=== PATIENT | female | born 1965 | race Caucasian/White ===

== ENCOUNTER → 2017-07-29 | Outpatient (CLI) | payer BC ==
--- NOTE | 2017-07-30 07:58 | MM ---
Reason for exam: screening (asymptomatic). Last mammogram was performed 1 year and 2 months ago. History: Family history of breast cancer in grandmother and breast cancer in 2 maternal aunts. Physical Findings: A clinical breast exam by your physician is recommended on an annual basis and results should be correlated with mammographic findings. MG 3D Screening Mammo W/Cad Bilateral CC and MLO view(s) were taken. Prior study comparison: June 12, 2016, bilateral MG screening mammo w CAD. July 16, 2015, bilateral MG 3d screening mammo w/cad. The breast tissue is heterogeneously dense. This may lower the sensitivity of mammography. No significant changes when compared with prior studies. ASSESSMENT: Benign, BI-RAD 2 RECOMMENDATION: Routine screening mammogram of both breasts in 1 year.
== END | disposition home or self-care (01) ==
LOC: RADMAMWWP 07:36
PROVIDERS: ATTEND Family Medicine
DX: Z12.31 Encounter for screening mammogram for malignant neoplasm of breast (principal)
CPT/HCPCS: 77063; 77067

== ENCOUNTER → 2018-08-30 | Outpatient (CLI) | payer BC ==
--- NOTE | 2018-08-31 09:50 | MM ---
Reason for exam: screening (asymptomatic). Last mammogram was performed 1 year and 1 month ago. History: Family history of breast cancer in grandmother and breast cancer in 2 maternal aunts. Physical Findings: A clinical breast exam by your physician is recommended on an annual basis and results should be correlated with mammographic findings. MG 3D Screening Mammo W/Cad Bilateral CC and MLO view(s) were taken. Prior study comparison: July 29, 2017, bilateral MG 3d screening mammo w/cad. June 12, 2016, bilateral MG screening mammo w CAD. The breast tissue is heterogeneously dense. This may lower the sensitivity of mammography. There is no discrete abnormality. No significant changes when compared with prior studies. ASSESSMENT: Negative, BI-RAD 1 RECOMMENDATION: Routine screening mammogram of both breasts in 1 year.
== END | disposition home or self-care (01) ==
LOC: RADMAMWWP 07:24
PROVIDERS: ATTEND Family Medicine
DX: Z12.31 Encounter for screening mammogram for malignant neoplasm of breast (principal)
CPT/HCPCS: 77063; 77067

== ENCOUNTER → 2018-09-23 | Outpatient (CLI) | payer BC ==
--- NOTE | 2018-09-23 22:07 | CONS ---
CONSULTATION DATE OF SERVICE: 09/23/2018 53-year-old lady who has been [facility] for possible obstructive sleep apnea/hypopnea syndrome. HISTORY OF PRESENT ILLNESS SLEEP WAKE EVALUATION: SLEEP SCHEDULE: Patient usual sleep schedule from 10 p.m. to 6:50 am on working days and from 10:30 p.m. to 7:30 or 8 am on weekends. FALLING ASLEEP: Usually no problems with falling asleep, although she has TV in bedroom. DURING SLEEP: She sleeps on the side position with loud snoring and witnessed episodes of stopped breathing during the sleep by her . She wakes up from sleep about 4 times with up to 3 episodes of nocturia. DURING THE DAY/SLEEP WAKE EVALUATION: Usually she does not take any naps during the day. [place] Sleepiness Scale is 6. No history of hypnagogic hallucinations, sleep paralysis or cataplexy. PAST MEDICAL HISTORY: 1. Positive for vitamin D deficiency. 2. History of strep throat and increased size of the tonsils. MEDICATIONS: 1. Vitamin D. 2. Baby aspirin. 3. Atorvastatin. 4. Presently . SOCIAL HISTORY: Negative for smoking. Alcohol consumption occasional. FAMILY HISTORY: Heart problems, snoring, diabetes, cancer, insomnia. REVIEW OF SYSTEMS: Multiple awakenings from sleep. PHYSICAL EXAM: lady without distress BP 122/88, HR 88, RR 16, height 5 feet 11 inches, weight 202 pounds, body mass index 28.1, temperature 98.3, oxygen saturation at room air 98%. Oropharynx: Hypertrophy of tonsils, small oropharyngeal air space, neck 14- 1/2 inches in circumference. Neck Supple, no JVD. Thyroid is not palpable. LUNGS Clear to percussion and to auscultation. Good air exchange. No wheezing or rhonchi. HEART S1, S2 regular. No murmurs, gallops, or rubs. ABDOMEN Soft and nontender. Bowel sounds are present. No organomegaly appreciated. EXTREMITIES No clubbing or cyanosis. 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 Cranial nerves 2 to 7 intact. There is no fasciculation or atrophy. noted. No focal deficits observed. IMPRESSION: 1. Snoring, witnessed episodes of stopped breathing during the sleep, multiple awakenings from sleep, hypertrophy of tonsils, small oropharyngeal air space, obstructive sleep apnea-hypopnea syndrome. 2. Hypertrophy of tonsils. Recent sore throat infection. 3. History of low vitamin D. 4. Perimenopausal since November of 2017. No menstrual periods since November of 2017. PLAN: 1. Sleep study for evaluation of patient breathing during the sleep. We will start with home sleep apnea test. 2. CPAP/BiPAP titration if sleep study confirms obstructive sleep apnea-hypopnea syndrome. 3. Preferable position during sleep on the side. 4. No driving if patient feels any sleepiness. 5. I will see patient for follow up visit to explain results of testing and following plan. Thank you very much for referring this patient for consultation. Sincerely, Carlyle Ortiz MD, PhD, FAASM Diplomat of [place] [employer] [place] [employer] Band Sawing Machine Operator of [facility] [place] MMRICHARDSON / NIYAN: [id number] /
== END ==
LOC: SLEEP 16:10
PROVIDERS: ATTEND Internal Medicine
DX: G47.33 Obstructive sleep apnea (adult) (pediatric) (principal); J35.1 Hypertrophy of tonsils; J02.9 Acute pharyngitis, unspecified; E55.9 Vitamin D deficiency, unspecified; Z78.0 Asymptomatic menopausal state; Z99.89 Dependence on other enabling machines and devices; Z79.899 Other long term (current) drug therapy; Z79.82 Long term (current) use of aspirin
CPT/HCPCS: 99211

== ENCOUNTER → 2019-09-20 | Outpatient (CLI) | payer BC ==
--- NOTE | 2019-09-20 11:27 | MM ---
Reason for exam: screening (asymptomatic). Last mammogram was performed 1 year and 1 month ago. History: Patient is postmenopausal. Family history of breast cancer in grandmother and breast cancer in 2 maternal aunts. Physical Findings: A clinical breast exam by your physician is recommended on an annual basis and results should be correlated with mammographic findings. MG 3D Screening Mammo W/Cad Bilateral CC and MLO view(s) were taken. Prior study comparison: August 30, 2018, bilateral MG 3d screening mammo w/cad. July 29, 2017, bilateral MG 3d screening mammo w/cad. The breast tissue is heterogeneously dense. This may lower the sensitivity of mammography. Scattered area of asymmetric densities are unchanged. No significant changes when compared with prior studies. ASSESSMENT: Benign, BI-RAD 2 RECOMMENDATION: Routine screening mammogram of both breasts in 1 year.
== END | disposition home or self-care (01) ==
LOC: RADMAMWWP 07:32
PROVIDERS: ATTEND Family Medicine
DX: Z12.31 Encounter for screening mammogram for malignant neoplasm of breast (principal)
CPT/HCPCS: 77063; 77067

== ENCOUNTER 2020-02-29 10:01 | Day surgery (SDC) | payer BC ==
[2020-02-27 16:08] VITALS: BMI 29.2
[~2020-02-29 10:01] MED LIST: DEXAMETHASONE SOD PHOSPHATE 10 MG/ML 1 ML VIAL IV ONE; HYDROmorphone 0.5 MG/0.5 ML SYRINGE IVP PRN; LACTATED RINGERS 1,000 ML IV SCH; ONDANSETRON 4 MG/2 ML VIAL IVP ONE; PROPOFOL 10 MG/ML 20 ML VIAL IV ONE
[2020-02-29 10:25] VITALS: RESP 16; TEMP 97.8
--- NOTE | 2020-02-29 11:47 | P.PCN ---
Date of Procedure: 02/29/20 Procedure(s) Performed: BRIEF HISTORY: Patient is a 54-year-old pleasant female scheduled for an elective colonoscopy as a part of screening for colorectal neoplasia. PROCEDURE PERFORMED: Colonoscopy. PREOPERATIVE DIAGNOSIS: Screening for colon cancer. IV sedation per Anesthesia. PROCEDURE: After informed consent was obtained, the patient, was brought into the endoscopy unit. IV sedation was administered by Anesthesia under continuous monitoring. Digital rectal examination was normal. Initially the Olympus CF-160 flexible video colonoscope was then inserted in the rectum, gradually advanced into the cecum without any difficulty. Careful examination was performed as the scope was gradually being withdrawn. Ileocecal valve and the appendiceal orifice were visualized and appeared normal. Prep was excellent. Mucosa of the cecum, ascending colon, transverse colon, descending colon, sigmoid colon, and rectum appeared normal. Retroflexion was performed in the rectum and no lesions were seen. The patient tolerated the procedure well. IMPRESSION: Normal-appearing colon from rectum to cecum with no evidence of colorectal neoplasia. RECOMMENDATIONS: Findings of this examination were discussed with the patient as well as her family. She was advised to have a repeat screening colonoscopy in 10 years..
[2020-02-29 12:32] VITALS: BP 121/81; PULSE 62
== END 2020-02-29 12:28 | disposition home or self-care (01) ==
LOC: ORWHC2ENDO 10:01
PROVIDERS: ATTEND Internal Medicine Gastroenterology
DX: Z12.11 Encounter for screening for malignant neoplasm of colon (principal); G47.33 Obstructive sleep apnea (adult) (pediatric); Z88.2 Allergy status to sulfonamides; Z79.82 Long term (current) use of aspirin; Z79.899 Other long term (current) drug therapy; Z99.89 Dependence on other enabling machines and devices
CPT/HCPCS: J2704; G0121

== ENCOUNTER → 2020-10-16 | Outpatient (CLI) | payer BC ==
--- NOTE | 2020-10-16 19:10 | XR ---
EXAMINATION TYPE: XR chest 2V DATE OF EXAM: 10/16/2020 COMPARISON: NONE HISTORY: Exposure to asbestos and left clavicle lump TECHNIQUE: Frontal and lateral views of the chest are obtained. FINDINGS: There is no focal air space opacity, pleural effusion, or pneumothorax seen. The cardiac silhouette size is within normal limits. The osseous structures are intact. IMPRESSION: No acute cardiopulmonary process. No evidence of significant pleural plaque.
== END | disposition home or self-care (01) ==
LOC: RADXRMAIN 17:06
PROVIDERS: ATTEND Family Medicine
DX: Z77.090 Contact with and (suspected) exposure to asbestos (principal)
CPT/HCPCS: 71046

== ENCOUNTER → 2020-10-16 | Outpatient (CLI) | payer BC ==
--- NOTE | 2020-10-17 11:57 | US ---
EXAMINATION TYPE: US mass soft tissue chest/back DATE OF EXAM: 10/16/2020 COMPARISON: NONE CLINICAL HISTORY: R22.1 Localized swelling, mass and lump, neck. Pt states palpable lump left supracl avicular area x 1 day Hypoechoic area/lesion in area of pt's palpable left supraclavicular= 0.9 x 0.8 x 0.8 cm ?etiology Attempted to call Dr's phone number provided on order, no answer IMPRESSION: 1. There may be an enlarged lymph node at the palpable abnormality. This is nonspecific and the heter ogenous hypoechoic area is not diagnostic for a lymph node. Recommend contrast CT soft tissue neck fo r additional evaluation
== END | disposition home or self-care (01) ==
LOC: RADUSWWP 16:36
PROVIDERS: ATTEND Family Medicine
DX: R22.1 Localized swelling, mass and lump, neck (principal)
CPT/HCPCS: 76536

== ENCOUNTER → 2020-10-19 | Outpatient (CLI) | payer BC ==
--- NOTE | 2020-10-19 12:10 | MM ---
Reason for exam: additional evaluation requested from prior study. Last mammogram was performed 1 year and 1 month ago. History: Patient is postmenopausal. Family history of breast cancer in grandmother and breast cancer in 2 maternal aunts. Physical Findings: Nurse did not find any significant physical abnormalities on exam. MG 3D Diag Mammo W/Cad JAZZMINE Bilateral CC and MLO view(s) were taken. Prior study comparison: September 20, 2019, bilateral MG 3d screening mammo w/cad. August 30, 2018, bilateral MG 3d screening mammo w/cad. The breast tissue is heterogeneously dense. This may lower the sensitivity of mammography. Benign calcifications. No significant new findings when compared with previous films. These results were verbally communicated with the patient and result sheet given to the patient on 10/19/20. ASSESSMENT: Probably benign, BI-RAD 3 RECOMMENDATION: Follow-up diagnostic mammogram of the left breast in 6 months.
== END | disposition home or self-care (01) ==
LOC: RADMAMWWP 09:38
PROVIDERS: ATTEND Family Medicine
DX: N63.10 Unspecified lump in the right breast, unspecified quadrant (principal); N63.20 Unspecified lump in the left breast, unspecified quadrant
CPT/HCPCS: 77062; 77066

== ENCOUNTER → 2020-10-29 | Outpatient (CLI) | payer BC ==
--- NOTE | 2020-10-29 15:56 | NM ---
EXAMINATION TYPE: NM parathyroid w/spect DATE OF EXAM: 10/29/2020 COMPARISON: NONE HISTORY: Elevated calcium levels TECHNIQUE: Following administration of 26.2 mCi Tc99m Sestamibi. Anterior projection images of the neck and ches t were obtained 10 minutes and 3 hours post injection. SPECT images of the neck and chest were obtai nayeli and reconstructed in three axes. FINDINGS: Thyroid tracer washout: Delayed images demonstrate near-complete tracer washout from the thyroid. Parathyroid uptake: None. The two-hour delayed images do not demonstrate any focal abnormal persisten t uptake in the region of the parathyroid glands to suggest parathyroid adenoma. Normal uptake: There is physiological tracer uptake in the myocardium, liver, salivary glands, and th yroid gland. IMPRESSION: Normal parathyroid imaging study. No evidence for mediastinal uptake to suggest mediastinal parathyro id adenoma
== END | disposition home or self-care (01) ==
LOC: RADNMMAIN 11:20
PROVIDERS: ATTEND Family Medicine
DX: E83.50 Unspecified disorder of calcium metabolism (principal)
CPT/HCPCS: 78071; A9500

== ENCOUNTER → 2021-04-23 | Outpatient (CLI) | payer BC ==
--- NOTE | 2021-04-23 10:47 | MM ---
Reason for exam: follow-up at short interval from prior study. Last mammogram was performed 6 months ago. History: Patient is postmenopausal. Family history of breast cancer in maternal grandmother and breast cancer in 2 maternal aunts. Physical Findings: Nurse did not find any significant physical abnormalities on exam. MG 3D Diag Mammo W/Cad LT CC and MLO view(s) were taken of the left breast. Prior study comparison: October 19, 2020, bilateral MG 3d diag mammo w/cad JAZZMINE. September 20, 2019, bilateral MG 3d screening mammo w/cad. August 30, 2018, bilateral MG 3d screening mammo w/cad. The breast tissue is heterogeneously dense. This may lower the sensitivity of mammography. Questionable central CC architectural distortion shows no MLO correlate. Previous axillary node no longer seen. These results were verbally communicated with the patient and result sheet given to the patient on 04/23/21. ASSESSMENT: Incomplete: need additional imaging evaluation, BI-RAD 0 RECOMMENDATION: Ultrasound of the left breast.
--- NOTE | 2021-04-23 10:50 | USB ---
Reason for exam: additional evaluation requested from abnormal screening. History: Patient is postmenopausal. Family history of breast cancer in maternal grandmother and breast cancer in 2 maternal aunts. US Breast Limited LT Technologist: Joanie Loyn Left limited breast ultrasound including focal area of concern, retroareolar and axilla demonstrates no cystic or solid lesion seen. Some patches of dense tissue noted. Scanned 11-1 o'clock and a 5-7 o'clock. These results were verbally communicated with the patient and result sheet given to the patient on 04/23/21. ASSESSMENT: Probably benign, BI-RAD 3 RECOMMENDATION: Follow-up diagnostic mammogram of both breasts in 6 months.
== END | disposition home or self-care (01) ==
LOC: RADMAMWWP 08:57
PROVIDERS: ATTEND Family Medicine
DX: R92.8 Other abnormal and inconclusive findings on diagnostic imaging of breast (principal); Z80.3 Family history of malignant neoplasm of breast
CPT/HCPCS: 77061; 77065

== ENCOUNTER → 2021-10-22 | Outpatient (CLI) | payer BC ==
--- NOTE | 2021-10-22 13:35 | MM ---
Reason for exam: additional evaluation requested from prior study. Last mammogram was performed 6 months ago. History: Patient is postmenopausal. Family history of breast cancer in maternal grandmother and breast cancer in 2 maternal aunts. Physical Findings: A clinical breast exam by your physician is recommended on an annual basis and results should be correlated with mammographic findings. MG 3D Diag Mammo W/Cad JAZZMINE Bilateral CC and MLO view(s) were taken. Prior study comparison: April 23, 2021, left breast MG 3d diag mammo w/cad LT. October 19, 2020, bilateral MG 3d diag mammo w/cad JAZZMINE. The breast tissue is heterogeneously dense. This may lower the sensitivity of mammography. Finding: There is suspicious, equal, spiculated architectural distortion located 4 cm from the nipple in the 6 o'clock anterior position of the left breast. New finding since April 23, 2021 and October 19, 2020. ASSESSMENT: Incomplete: need additional imaging evaluation, BI-RAD 0 RECOMMENDATION: Ultrasound of the left breast.
--- NOTE | 2021-10-22 13:39 | USB ---
Reason for exam: additional evaluation requested from abnormal screening. History: Patient is postmenopausal. Family history of breast cancer in maternal grandmother and breast cancer in 2 maternal aunts. Physical Findings: A clinical breast exam by your physician is recommended on an annual basis and results should be correlated with mammographic findings. US Breast Limited LT Left limited breast ultrasound including focal area of concern, retroareolar and axilla demonstrates no cystic or solid lesion seen. Scanned 5-7 o'clock. ASSESSMENT: Negative, BI-RAD 1 RECOMMENDATION: Surgical consultation and stereotactic core biopsy of the left breast. (3D stereotactic core biospy) Called Dr. Pennington's office with mammographic findings. Office will follow up with patient to schedule biopsy at appropriate facility for 3D biopsy. PRELIMINARY REPORT CALLED AND FAXED TO DR. PENNINGTON ON 10/22/21.
== END | disposition home or self-care (01) ==
LOC: RADMAMWWP 08:15
PROVIDERS: ATTEND Family Medicine
DX: R92.8 Other abnormal and inconclusive findings on diagnostic imaging of breast (principal); Z78.0 Asymptomatic menopausal state; Z80.3 Family history of malignant neoplasm of breast
CPT/HCPCS: 77062; 77066

== ENCOUNTER 2021-12-26 08:52 | Day surgery (SDC) | payer BC ==
[2021-12-24 14:48] VITALS: BMI 28.5
[~2021-12-26 08:52] MED LIST changes: -DEXAMETHASONE SOD PHOSPHATE 10 MG/ML 1 ML VIAL IV ONE; +DEXAMETHASONE SOD PHOSPHATE 4 MG/ML 1 ML VIAL IV ONE; -PROPOFOL 10 MG/ML 20 ML VIAL IV ONE; +Pre Op ABX Message 1 EACH MISC MISCELLANE ONE
[2021-12-26] MEDS ORDERED: ALPRAZolam 0.5 MG TAB ONE (09:30)
[2021-12-26] MEDS ORDERED: LIDOCAINE 1% INJ 10MG/ML (20 ML MDV) SQ ONE (10:58)
[2021-12-26] MEDS ORDERED: fentaNYL (PF) 50 MCG/ML 2 ML AMP ONE (12:50)
[2021-12-26] MEDS ORDERED: LIDOCAINE 2% INJ 20 MG/ML (2 ML VIAL) ONE (12:50)
[2021-12-26] MEDS ORDERED: MIDAZOLAM 2 MG/2 ML VIAL ONE (12:50)
[2021-12-26] MEDS ORDERED: PROPOFOL 10 MG/ML 20 ML VIAL IV ONE (12:50)
[2021-12-26] MEDS ORDERED: LIDOCAINE 1%-EPI 1:100,000 20 ML VIAL SQ ONE (13:14)
--- NOTE | 2021-12-26 14:28 | P.OP ---
Date of Procedure: 12/26/21 Preoperative Diagnosis: Radial scar, left breast Postoperative Diagnosis: Radial scar, left breast Procedure(s) Performed: Left breast lumpectomy with needle localization Anesthesia: JAYE Surgeon: Dewayne Cordoba Pathology: other (Radial scar of left breast, additional superior margin and additional lateral margin) Condition: stable Disposition: same day Indications for Procedure: 56-year-old female has recently been found to have abnormal finding of mammogram. Recommendation was for biopsy of the left breast. This was done under radiology and the biopsy was positive for radial scar. Secondary to this, recommendation was made for lumpectomy. Risks, benefits and alternatives were provided to the patient. She did provide consent prior to attending the operating suite. Operative Findings: Left breast lumpectomy, clipped not found and specimen, additional margins were taken Description of Procedure: The patient were was brought to the operating suite and placed on the operating table in supine position. Sedation was provided by anesthesia and the patient underwent LMA placement. She was then prepped and draped in regular sterile fashion. Prior to the procedure, patient did have needle localization of the biopsy site by radiology. Incision was made just superior to the needle insertion site. Dissection was carried to the needle and the needle was followed towards the tip using cautery as dissection. The entire specimen was encircled using cautery and then excised. This was sent for x-ray and clip was not found within the specimen. At this point, additional superior and lateral margin were taken and also sent for evaluation under x-ray with no clip noted in the specimen. On evaluation of the breast tissue, it did appear that a significant amount of tissue was removed with lumpectomy and decision was made for intraoperative imaging to evaluate for any clip that may still be in place. Fluoroscopy was used on the left breast with no obvious clip visible under x- ray. At this point, it is most likely that the clip was washed away with irrigation or on suction. Specimen that was removed surrounded the needle appropriately with significant margins taken. At this point hemostasis was noted to be maintained. The wound was closed with 4-0 Monocryl suture in subcuticular format. Sterile dressing was applied. The patient was awakened and taken to postoperative care unit in stable condition.
[2021-12-26 14:34] VITALS: TEMP 97
[2021-12-26 15:13] VITALS: RESP 18
[2021-12-26 15:36] VITALS: BP 138/91; PULSE 62
--- NOTE | 2021-12-27 08:24 | FL ---
Fluoroscopy HISTORY: Foreign body 1 seconds fluoroscopy time supplied to the referring clinician. 1 intraoperative C-arm images docume nt the procedure. See dictated report from general surgery.
--- NOTE | 2022-01-01 11:24 | MM ---
Risk Values: [place] 5 year model risk: 1.5%. NCI Lifetime model risk: 9.3%. Prior Study Comparison: 10/19/2020 Bilateral Diagnostic Mammogram, [facility]. 04/23/2021 Left Diagnostic Mammogram, [facility]. 10/22/2021 Bilateral Diagnostic Mammogram, [facility]. Pathology Description: Location: lower inner quadrant. Approach: CC FB Needle Type: 5 cm Kopan FROM BELOW CC FOR SPIRAL CLIP FROM [facility] The procedure of needle localization with wire placement and than surgical excision was explained to the patient. Benefits, alternatives, and risks were discussed. An informed consent was then obtained. The shortest pathway for procedure was chosen. Shortest pathway was caudal to cranial approach. The overlying skin was prepped and draped in usual sterile fashion. Lidocaine is used as anesthetic into the skin and subcutaneous tissue up to the level of area of concern. A 5 cm needle was used. It was placed via a inferior approach under mammographic guidance. Subsequent 90 degrees mammogram show the needle to be in satisfactory position relative to the targeted area. At this point, wire was placed and the needle was withdrawn. The wire was fixed to patient's skin. Images were marked for surgeon. The patient tolerated the procedure well without any immediate complication. The patient was kept in the radiology department for short stay after the procedure and then taken to surgery for surgical excision. Targeted biopsy clip number identified on 4 specimens obtained. Placed intact wire are identified in specimen mammogram. The patient was kept in hospital for short stay after the procedure and then discharged home in stable condition. Impression: Needle localization with wire placement and attempted surgical excision of targeted biopsy clip in the right breast, full pathology results to follow. Unsuccessful retrieval of biopsy clip on the 4 specimens obtained. The procedure of needle localization with wire placement and than surgical excision was explained to the patient. Benefits, alternatives, and risks were discussed. An informed consent was then obtained. The shortest pathway for procedure was chosen. Shortest pathway was caudal to cranial approach. The overlying skin was prepped and draped in usual sterile fashion. Lidocaine is used as anesthetic into the skin and subcutaneous tissue up to the level of area of concern. A 5 cm needle was used. It was placed via a inferior approach under mammographic guidance. Subsequent 90 degrees mammogram show the needle to be in satisfactory position relative to the targeted area. At this point, wire was placed and the needle was withdrawn. The wire was fixed to patient's skin. Images were marked for surgeon. The patient tolerated the procedure well without any immediate complication. The patient was kept in the radiology department for short stay after the procedure and then taken to surgery for surgical excision. Targeted biopsy clip number identified on 4 specimens obtained. Placed intact wire are identified in specimen mammogram. The patient was kept in hospital for short stay after the procedure and then discharged home in stable condition. Unsuccessful retrieval of biopsy clip on the 4 specimens obtained. Impression: Needle localization with wire placement and attempted surgical excision of targeted biopsy clip in the right breast, full pathology results to follow. Pathology Results: Result: Benign, Fat necrosis. A. LEFT BREAST, LUMPECTOMY: Biopsy site change with fat necrosis, fibrous scar and fibrocystic change with columnar cell change, focal microcalcification and sclerosing adenosis. Margins benign and examination negative for in situ or invasive carcinoma. Usual ductal hyperplasia present. B. LEFT BREAST, LUMPECTOMY: Biopsy site change with fat necrosis, fibrous scar and focal hemorrhage. Focal usual ductal hyperplasia present. Margins benign and examination negative for in situ or invasive carcinoma. C. LEFT BREAST, SUPERIOR MARGIN, EXCISION: Biopsy site change with fat necrosis, fibrosis and focal microcalcification. All margins benign and examination negative for in situ or invasive carcinoma. Focal usual ductal hyperplasia present. Focal sclerosing adenosis. D. LEFT BREAST, ADDITIONAL LATERAL MARGIN, EXCISION: Benign breast tissue. All margins benign and examination negative for in situ or invasive carcinoma. Overall Assessment: Benign Management: Diagnostic Mammogram of the left breast in 6 months. Electronically signed and approved by: Eugene Hawk M.D.
== END 2021-12-26 15:56 | disposition home or self-care (01) ==
LOC: OR 08:52
PROVIDERS: ATTEND Surgery
DX: L90.5 Scar conditions and fibrosis of skin (principal); N64.89 Other specified disorders of breast
CPT/HCPCS: 19301; 76098; 19281; C1819; J2250; J2001 ×2; J3010; J2704; 88307

== ENCOUNTER → 2022-07-10 | Outpatient (CLI) | payer BC ==
--- NOTE | 2022-07-10 10:17 | MM ---
Reason for Exam: Additional evaluation requested from prior study. Last screening mammogram was performed 9 month(s) ago. Patient History: Menarche at age 14. First Full-Term at age 25. Postmenopausal. Patient has history of breast feeding. Breast cancer, left, age 56. 10/24/2021, MG stereo VAD BX LT - 2 on the Left side. 12/26/2021, Benign MG pre op needle loc LT on the left side. Maternal grandmother had breast cancer. Maternal aunt had breast cancer. Maternal aunt had breast cancer. Prior Study Comparison: 08/30/2018 Bilateral Screening Mammogram, [facility]. 09/20/2019 Bilateral Screening Mammogram, [facility]. 10/19/2020 Bilateral Diagnostic Mammogram, [facility]. 04/23/2021 Left Diagnostic Mammogram, [facility]. 10/22/2021 Bilateral Diagnostic Mammogram, [facility]. Tissue Density: The breast tissue is heterogeneously dense. This may lower the sensitivity of mammography. Findings: Analyzed By CAD. Pattern appears stable. There is a stable distortion within the left breast which has been biopsied. The surgical markers been resected over the interval. Right breast appears stable. No suspicious spiculated or lobular masses are evident. No suspicious cluster microcalcifications. Overall Assessment: Benign, BI-RAD 2 Management: Screening Mammogram of both breasts in 1 year. A clinical breast exam by your physician is recommended on an annual basis and results should be correlated with mammographic findings. This exam should not preclude additional follow-up of suspicious palpable abnormalities. Results were given to the patient verbally at the time of exam. Electronically signed and approved by: Heron Blanc D.O. Radiologis
== END | disposition home or self-care (01) ==
LOC: RADMAMWWP 07:31
PROVIDERS: ATTEND Internal Medicine
DX: R92.8 Other abnormal and inconclusive findings on diagnostic imaging of breast (principal); Z78.0 Asymptomatic menopausal state; Z80.3 Family history of malignant neoplasm of breast; Z85.3 Personal history of malignant neoplasm of breast
CPT/HCPCS: 77062; 77066

== ENCOUNTER → 2022-07-29 | Outpatient (CLI) | payer BC ==
--- NOTE | 2022-07-29 10:04 | BD ---
EXAMINATION TYPE: Axial Bone Density DATE OF EXAM: 07/29/2022 COMPARISON: 08/06/2006 CLINICAL HISTORY: 57 years year old Female. ICD-10 CODE: M85.851 OSTEOPENIA OF RIGHT HIP Height: 70.5 Weight: 207 FRAX RISK QUESTIONS: Alcohol (3 or more units per day): NO Family History (Parent hip fracture): NO Glucocorticoids (More than 3mos): NO History of Fracture in Adulthood: NO Secondary Osteoporosis: 1. Type 1 Diabetes: NO 2. Hyperthyroidism: NO 3. Menopause before 45: NO 4. Malnutrition: NO 5. Chronic liver disease: NO Rheumatoid Arthritis: NO Current Tobacco Use: NO RISK FACTORS HISTORY OF: Hip Fracture (Right/Left): NO Spine Fracture: NO History of Wrist Fracture: NO Surgery to Spine/Hip(right/left)/Wrist (right/left): NO Family History of Osteoporosis: MOM Active: NO Diet low in dairy products/other sources of calcium: NO Postmenopausal woman: YES Take estrogen and/or progesterone medications: NO Lost more than 2 inches in height since high school: NO Frequent falls: NO Poor Health: NO Hyperparathyroidism: NO Adrenal Insufficiency: NO MEDICATIONS: Prednisone or other steroids: NO Thyroid Medications: NO Osteoporosis Medications: NO Additional Medications: CHOLESTEROL MEDS, VIT C, VIT D, EXAM MEASUREMENTS: Bone mineral densitometry was performed using the [employer] System. Bone mineral density as measured about the Lumbar spine is: ----- L1-L4(G/cm2): 1.100 T Score Values are as follows: ----- L1: -0.7 ----- L2: -0.9 ----- L3: -0.8 ----- L4: -0.4 ----- L1-L4: Bone mineral density has: DECREASED -17.3 % since study of: 08/06/2006 Bone mineral density about the R hip (g/cm2): 1.053 Bone mineral density about the L hip (g/cm2): 1.018 T Score values are as follows: -----R Neck: 0.1 -----L Neck: -0.1 -----R Total: 0.6 -----L Total: 0.8 Bone mineral density has: DECREASED -8.9 % since study of: 08/06/2006 FRAX%s: The graph provided illustrates a 5.8% chance for a major osteoporotic fx and a 0.1% chance fo r the hips probability for fx in 10 years time. IMPRESSION: Normal (Values between +1 and -1 indicate normal bone mass). Consider repeating this study in 5 year s or sooner if there is some new clinical indication. NOTE: T-SCORE=SD OF THE YOUNG ADULT MEAN.
== END | disposition home or self-care (01) ==
LOC: RADBDWWP 07:52
PROVIDERS: ATTEND Internal Medicine
DX: M85.851 Other specified disorders of bone density and structure, right thigh (principal); Z78.0 Asymptomatic menopausal state
CPT/HCPCS: 77080

== ENCOUNTER → 2023-07-30 | Outpatient (CLI) | payer BC ==
--- NOTE | 2023-07-30 12:55 | XR ---
EXAMINATION TYPE: XR chest 2V DATE OF EXAM: 07/30/2023 10:50 AM CLINICAL INDICATION:Female, 58 years old with history of R05.1 COUGH; [facility] COMPARISON: Chest radiographs from 10/16/2020. TECHNIQUE: XR chest 2V Frontal and lateral views of the chest. FINDINGS: Lungs/Pleura: There is no evidence of pleural effusion, focal consolidation, or pneumothorax. Pulmonary vascularity: Unremarkable. Heart/mediastinum: Cardiomediastinal silhouette is unremarkable. Musculoskeletal: No acute osseous pathology. IMPRESSION: No acute cardiopulmonary disease/process.
--- NOTE | 2023-07-31 18:55 | MM ---
Reason for Exam: Screening (asymptomatic). Last mammogram was performed 1 year(s) and 1 month(s) ago. Patient History: Menarche at age 14. First Full-Term at age 25. Postmenopausal. Patient has history of breast feeding. Breast cancer, left, age 56. 10/24/2021, MG stereo VAD BX LT - 2 on the Left side. 12/26/2021, Benign MG pre op needle loc LT on the left side. Maternal grandmother had breast cancer. Maternal aunt had breast cancer. Maternal aunt had breast cancer. Prior Study Comparison: 04/23/2021 Left Diagnostic Mammogram, [facility]. 10/22/2021 Bilateral Diagnostic Mammogram, [facility]. 07/10/2022 Bilateral MG 3D diag mammo w/cad JAZZMINE, [facility]. Tissue Density: The breast tissue is heterogeneously dense. This may lower the sensitivity of mammography. Findings: Analyzed By CAD. Pattern appears stable. Some subtle underlying architectural distortion, present previously and is in the left breast. No suspicious groups of microcalcifications, spiculated or lobular masses, architectural distortion or other secondary signs of malignancy are mammographically apparent. Overall Assessment: Benign, BI-RAD 2 Management: Screening Mammogram of both breasts in 1 year. A negative mammogram report should not preclude additional follow up of suspicious palpable abnormalities. Patient should continue monthly self breast exam. A clinical breast exam by your physician is recommended on an annual basis and results should be correlated with mammographic findings. Electronically signed and approved by: Heron Blanc D.O. Radiologis
== END | disposition home or self-care (01) ==
LOC: RADMAMWWP 10:22
PROVIDERS: ATTEND Internal Medicine
DX: Z12.31 Encounter for screening mammogram for malignant neoplasm of breast (principal); R05.1 Acute cough; Z80.3 Family history of malignant neoplasm of breast; Z85.3 Personal history of malignant neoplasm of breast; Z78.0 Asymptomatic menopausal state
CPT/HCPCS: 71046; 77063; 77067

== ENCOUNTER → 2023-10-02 | Outpatient (CLI) | payer BC | END | disposition home or self-care (01) | LOC: LABWHC1 12:17 | PROVIDERS: ATTEND Nurse Practitioner Family | DX: L40.0 Psoriasis vulgaris (principal); Z79.899 Other long term (current) drug therapy | CPT/HCPCS: 36415; 86480 ==

== ENCOUNTER → 2024-01-18 | Outpatient (CLI) | payer BC ==
--- NOTE | 2024-01-18 17:13 | US ---
EXAMINATION TYPE: US carotid duplex BILAT DATE OF EXAM: 01/18/2024 COMPARISON: NONE CLINICAL INDICATION: Female, 58 years old with history of E83.119 HEMOCHROMATOSIS; [id number] OCCLUSION AN D STENO; screening TECHNIQUE: Carotid duplex ultrasound examination. Indirect Doppler criteria was utilized. 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 Criteria for Assigning % of Stenosis / Diameter reduction (Estimation based on the indirect measurements of the internal carotid artery velocities (ICA PSV). 1. Normal (no stenosis)=ICA PSV < 125 cm/s: ratio < 2.0: ICA EDV<40 cm/s. 2. Less than 50% stenosis=ICA PSV < 125 cm/s: ratio < 2.0: ICA EDV<40 cm/s. 3. 50 to 69% stenosis=ICA PSV of 125 to 230 cm/s: ration 2.0 ? 4.0: ICA EDV 40-100 cm/s. 4. Greater than 70% stenosis to near occlusion= ICA PSV > 230 cm/s: ratio > 4.0: ICA EDV > 100 cm/s. 5. Near occlusion= ICA PSV velocities may be low or undetectable: variable ratio and ICA EDV. 6. Total occlusion=unable to detect flow.
--- NOTE | 2024-01-19 09:39 | CA ---
Transthoracic Echo Report Name: Hermila Mo Age: 58 Gender: F : 1965 Exam Date: 01/18/2024 17:17 Exam Location: [facility] Ht (in): 71 Wt (lb): 210 Ordering Physician: Yudi Perez MD Attending/Referring Phys: Supply Planner Ashley Pitts RDCS Procedure CPT: Indications: E83.119 Cardiac Hx: Technical Quality: Good Contrast 1: Total Dose (mL): Contrast 2: Total Dose (mL): MEASUREMENTS (Male / Female) Normal Values 2D ECHO LV Diastolic Diameter PLAX 4.7 cm 4.2 - 5.9 / 3.9 - 5.3 cm LV Systolic Diameter PLAX 3.1 cm IVS Diastolic Thickness 1.0 cm 0.6 - 1.0 / 0.6 - 0.9 cm LVPW Diastolic Thickness 0.9 cm 0.6 - 1.0 / 0.6 - 0.9 cm LV Relative Wall Thickness 0.4 RV Internal Dim ED PLAX 3.6 cm LA Systolic Diameter LX 3.4 cm 3.0 - 4.0 / 2.7 - 3.8 cm LV Diastolic Volume MOD 4C 107.8 cm??? LV Systolic Volume MOD 4C 45.5 cm??? LV Ejection Fraction MOD 4C 57.8 % LV Cardiac Index MOD 4C 1724.9 cm???/min???m??? LV Diastolic Length 4C 8.9 cm LV Systolic Length 4C 6.6 cm LV Diastolic Volume MOD 2C 95.6 cm??? LV Systolic Volume MOD 2C 35.3 cm??? LV Ejection Fraction MOD 2C 63.1 % LV Cardiac Index MOD 2C 1668.4 cm???/min???m??? LV Diastolic Length 2C 7.5 cm LV Systolic Length 2C 5.9 cm LA Volume 61.1 cm??? 18 - 58 / 22 - 52 cm??? LA Volume Index 27.7 cm???/m??? 16 - 28 cm???/m??? M-MODE Aortic Root Diameter MM 4.0 cm AV Cusp Separation MM 2.0 cm DOPPLER AV Peak Velocity 120.7 cm/s AV Peak Gradient 5.8 mmHg MV Area PHT 3.0 cm??? Mitral E Point Velocity 76.1 cm/s Mitral A Point Velocity 84.7 cm/s Mitral E to A Ratio 0.9 MV Deceleration Time 254.1 ms TR Peak Velocity 231.8 cm/s TR Peak Gradient 21.5 mmHg Right Ventricular Systolic Press 26.4 mmHg FINDINGS Left Ventricle Left ventricular ejection fraction is estimated at 55-60 %. Left ventricular cavity size normal. Left ventricular wall thickness normal. Normal left ventricular wall motion. Right Ventricle Normal RV size and systolic function. Right ventricular systolic pressure within normal limits. Right Atrium Normal right atrial size. No right atrial thrombus or mass seen. Left Atrium Mildly increased left atrial volume. Mildly increased left atrial area. Mitral Valve Structurally normal mitral valve. No evidence for mitral valve prolapse. No mitral stenosis. Trace mitral regurgitation. Aortic Valve Trileaflet aortic valve. No aortic valve stenosis or regurgitation. Tricuspid Valve Structurally normal tricuspid valve. Trace to mild tricuspid regurgitation. Pulmonic Valve Structurally normal pulmonic valve. No pulmonic regurgitation. Pericardium No pericardial effusion. No pleural effusion. Aorta Mild aortic dilatation at the level of the sinuses of valsalva 40 mm CONCLUSIONS LVEF 55 to 60%. No significant regional wall motion normality No significant valvular dysfunction Normal RV size and systolic function. Mild LA dilatation Previewed by: Dr Hesham Reyna (Electronically Signed) Final Date: 19 January 2024 09:38
== END | disposition home or self-care (01) ==
LOC: RADUSWWP 16:19
PROVIDERS: ATTEND Internal Medicine
DX: E83.119 Hemochromatosis, unspecified (principal); I65.23 Occlusion and stenosis of bilateral carotid arteries
CPT/HCPCS: 93306; 93880